=== PATIENT | female | born 1960 | race African-American/Black ===

== ENCOUNTER → 2022-11-30 | Outpatient (CLI) | payer BC ==
--- NOTE | 2022-11-30 11:47 | US ---
EXAMINATION TYPE: US thyroid st tissue head/neck DATE OF EXAM: 11/30/2022 COMPARISON: Outside ultrasound 02/08/2019 CLINICAL INDICATION: Female, 61 years old with history of E04.1 SINGLE THYROID NODULE; Nodule per ord er. Hx FNA. GLAND SIZE: Right Lobe: 6.5 x 2.7 x 2.5 cm Overall Parenchyma: heterogenous Left Lobe: 6.6 x 2.9 x 2.6 cm Overall Parenchyma: heterogenous Isthmus Thickness: 0.23 cm NODULES RIGHT: # of nodules measured on right: 3, numerous smaller nodules seen. 1. 0.8 X 0.9 x 0.6 cm, upper mid, Prior size: Cannot correlate with outside prior TIRADS Score: 3 TIRADS Category 3: Mildly Suspicious Composition: Mixed cystic and solid (1 point). Echogenicity: Hypoechoic (2 points). Shape: Wider than tall (0 points). Margin: Smooth (0 points). Echogenic foci: None or large comet-tail artifacts (0 points) Recommendation: If >2.5cm: FNA; If >1.5cm: Follow up at 1,3,5 years 2. 1.2 X 1.0 x 0.5 cm, mid lateral, Prior size: Cannot correlate TIRADS Score: 2 TIRADS Category 2: Not Suspicious Composition: Mixed cystic and solid (1 point). Echogenicity: Hyperechoic or isoechoic (1 point). Shape: Wider than tall (0 points). Margin: Smooth (0 points). Echogenic foci: None or large comet-tail artifacts (0 points) Recommendation: No FNA 3. 1.2 X 1.2 x 0.7 cm, lower mid, Prior size: Cannot correlate TIRADS Score: 3 TIRADS Category 3: Mildly Suspicious Composition: Mixed cystic and solid (1 point). Echogenicity: Hypoechoic (2 points). Shape: Wider than tall (0 points). Margin: Smooth (0 points). Echogenic foci: None or large comet-tail artifacts (0 points) Recommendation: If >2.5cm: FNA; If >1.5cm: Follow up at 1,3,5 years LEFT: # of nodules measured on left: 3, numerous smaller nodules seen. 1. 2.5 X 1.7 x 1.5 cm, mid lateral, Prior size: Cannot correlate TIRADS Score: 0 TIRADS Category 1: Benign Composition: Cystic or almost completely cystic (0 points). Recommendation: No FNA 2. 1.9 X 1.5 x 0.8 cm, mid mid, Prior size: Cannot correlate TIRADS Score: 0 TIRADS Category 1: Benign Composition: Cystic or almost completely cystic (0 points). Recommendation: No FNA 3. 1.7 X 1.8 x 1.3 cm, lower mid Prior size: Cannot correlate TIRADS Score: 4 TIRADS Category 4: Moderately Suspicious Composition: Solid or almost completely solid (2 points). Echogenicity: Hypoechoic (2 points). Shape: Wider than tall (0 points). Margin: Smooth (0 points). Echogenic foci: None or large comet-tail artifacts (0 points) Recommendation: If >1.5cm: FNA; If >1cm: Follow up at 1,2, 3,5 years ISTHMUS: # of nodules measured in the isthmus: 1 <5 mm nodule seen, not fully measured on the rig ht isthmus. Bilateral neck scanned, no evidence of lymphadenopathy. IMPRESSION: Bilateral thyroid nodules one of which within the left mid thyroid gland #3 above measuring 1.7 x 1.8 x 1.3 cm meets criteria for tissue sampling.
== END | disposition home or self-care (01) ==
LOC: RADUSWWP 09:10
PROVIDERS: ATTEND Family Medicine
DX: E04.2 Nontoxic multinodular goiter (principal)
CPT/HCPCS: 76536

== ENCOUNTER → 2023-01-19 | Outpatient (CLI) | payer BC ==
--- NOTE | 2023-01-21 08:50 | MM ---
Reason for Exam: Screening (asymptomatic). Patient History: Menarche at age 12. Hysterectomy at age 38. Postmenopausal. Mother had breast cancer at or over age 50. Risk Values: Danielle 5 year model risk: 2.5%. NCI Lifetime model risk: 10.3%. Prior Study Comparison: No prior studies available for comparison. Tissue Density: There are scattered fibroglandular densities. Findings: Analyzed By CAD. There is no suspicious group of microcalcifications or new suspicious mass in either breast. Overall Assessment: Negative, BI-RAD 1 Management: Screening Mammogram of both breasts in 1 year. . Patient should continue monthly self-breast exams. A clinical breast exam by your physician is recommended on an annual basis. This exam should not preclude additional follow-up of suspicious palpable abnormalities. Note on Danielle scores and lifetime risk: 1. A Danielle score greater than 3% is considered moderate risk. If this is the case, consider specialist referral to assess eligibility for a risk reducing agent. 2. If overall lifetime risk for the development of breast cancer is 20% or higher, the patient may qualify for future screening with alternating mammogram and breast MRI. Electronically signed and approved by: Gene Babcock M.D. Radiologis
== END | disposition home or self-care (01) ==
LOC: RADMAMWWP 11:44
PROVIDERS: ATTEND Family Medicine
DX: Z12.31 Encounter for screening mammogram for malignant neoplasm of breast (principal); Z78.0 Asymptomatic menopausal state; Z80.3 Family history of malignant neoplasm of breast
CPT/HCPCS: 77063; 77067

== ENCOUNTER 2023-12-03 06:02 | Day surgery (SDC) | payer BC ==
[2023-12-01 10:11] VITALS: BMI 43.5
[2023-12-03 06:47] VITALS: TEMP 97.1
[2023-12-03] MEDS: IV FLUID CONTINUATION 1,000 ML IV ONE ×2 (06:52→07:44)
[2023-12-03] MEDS: MIDAZOLAM 2 MG/2 ML VIAL IV STA (07:05)
[2023-12-03] MEDS: LIDOCAINE 1% (10MG/ML) FOR IV START INTRADERMA PRN (07:06)
[2023-12-03] MEDS: LACTATED RINGERS 1,000 ML IV SCH (07:06)
[2023-12-03] MEDS ORDERED: PROPOFOL 10 MG/ML 20 ML VIAL IV ONE (07:44)
[2023-12-03] MEDS ORDERED: LIDOCAINE 1% INJ 10MG/ML (20 ML MDV) ONE (07:44)
--- NOTE | 2023-12-03 08:04 | P.PCN ---
Date of Procedure: 12/03/23 Procedure(s) Performed: Brief history: Patient is a pleasant 62-year-old -[place] female scheduled for an elective upper endoscopy as well as colonoscopy as a part of evaluation of GERD/prior history of colon polyps Procedure performed: Esophagogastroduodenoscopy biopsy Colonoscopy with biopsy Preoperative diagnosis: GERD Sterile colon polyps [place] [facility] [place]: After informed consent was obtained from the patient was brought into the endoscopy unit and IV sedation was administered by anesthesia under continuous monitoring. Initially upper endoscopy was done. The Olympus GF 160 video endoscope was inserted inserted into the mouth and esophagus intubated without any difficulty and was gradually advanced into the stomach and duodenum and carefully examined. The bulb and second part of the duodenum appeared normal. The scope was then withdrawn into the stomach adequately insufflated with air and upon careful examination the antrum had mild gastritis and biopsies were done from this area. Mucosa of the body, cardia and fundus appeared normal. The scope was then withdrawn into the esophagus. The GE junction was located at 40 cm to the incisors. It appeared regular with no erythema erosions or ulcerations. Biopsies were done from the distal distal esophagus. Rest of the esophagus appeared normal. Patient tolerated the procedure well. At this time the patient continued to remain sedation. Initial digital rectal examination was normal. Olympus CF 160 video colonoscope was then inserted into the rectum and gradually advanced to the cecum without any difficulty. Careful examination was performed as the scope was gradually being withdrawn. The prep was excellent. The cecum, ascending colon, transverse colon, appeared normal. The descending colon there was a 3 mm polyp that was removed by cold biopsy. Rest of the descending colon, sigmoid colon and rectum appeared normal. Retroflexion was performed in the rectum and no lesions were noted. Patient tolerated the procedure well. Impression: 1. Upper endoscopy revealed mild antral gastritis but no evidence of esophagitis or Hicks's esophagus 2. Colonoscopy revealed a 3 mm descending colon polyp status post cold biopsy and the rest of the colon appeared normal Recommendations: Findings of this examination were discussed with the patient as well as her family. She was advised to continue the Dexilant 60 mg daily and follow antireflux measures. Follow-up with the biopsy results. Recommended repeat colonoscopy in 5 years.
[2023-12-03 08:23] VITALS: BP 117/77; PULSE 83; RESP 16
== END 2023-12-03 08:36 | disposition home or self-care (01) ==
LOC: ORWHC2ENDO 06:02
PROVIDERS: ATTEND Internal Medicine Gastroenterology
DX: Z12.11 Encounter for screening for malignant neoplasm of colon (principal); D12.4 Benign neoplasm of descending colon; K29.50 Unspecified chronic gastritis without bleeding; K21.9 Gastro-esophageal reflux disease without esophagitis; Z86.010 Personal history of colon polyps; I10 Essential (primary) hypertension; J45.909 Unspecified asthma, uncomplicated; F41.9 Anxiety disorder, unspecified; Z79.899 Other long term (current) drug therapy
CPT/HCPCS: 45380; 43239; J2250; J2001; J2704

== ENCOUNTER → 2024-01-13 | Outpatient (CLI) | payer BC ==
--- NOTE | 2024-01-13 12:33 | US ---
EXAMINATION TYPE: US thyroid st tissue head/neck DATE OF EXAM: 01/13/2024 COMPARISON: 11/30/22 CLINICAL INDICATION: Female, 63 years old with history of E04.2 NONTOXIC MULTINODULAR GOITER; hx of n odules GLAND SIZE: Right Lobe: 5.2 x 2.4 x 1.9 cm Overall Parenchyma: heterogeneous Left Lobe: 5.7 x 2.6 x 2.4 cm Overall Parenchyma: heterogeneous Isthmus Thickness: 0.31 cm NODULES RIGHT: # of nodules measured on right: 3 1. 0.9 X 0.9 x 0.5 cm, mid mid, mixed cystic and solid, hypoechoic nodule, which is wider than tall , with lobulated or irregular margins, without echogenic foci. TR 4 Prior size: 0.8 x 0.9 x 0.6 cm 2. 1.3 X 1.1 x 0.8 cm, lower medial, solid or almost completely solid, hypoechoic nodule, which is wider than tall, with lobulated or irregular margins, without echogenic foci. Prior size: 1.2 x 1.2 x 0.7 cm TR 4 3. 0.9 X 0.8 x 0.7 cm, lower medial, solid or almost completely solid, hypoechoic nodule, which is wider than tall, with lobulated or irregular margins, without echogenic foci. TR 4 LEFT: # of nodules measured on left: 3 1. 2.0 X 1.5 x 0.9 cm, mid mid, cystic or almost completely cystic, hypoechoic nodule, which is wid er than tall, with lobulated or irregular margins, without echogenic foci. TR 4 2. 1.3 X 1.5 x 0.8 cm, lower mid, solid or almost completely solid, hypoechoic nodule, which is wi keiry than tall, with lobulated or irregular margins, without echogenic foci. Prior size: 1.9 x 1.5 x 0.8 cm TR 4 3. 1.3 X 1.0 x 0.9 cm, lower lateral, mixed cystic and solid, hypoechoic nodule, which is wider josy n tall, with lobulated or irregular margins, without echogenic foci. TR 4 Prior size: 1.7 x 1.3 x 1.8 cm ISTHMUS: # of nodules measured in the isthmus: 0 Overall numerous nodules seen bilaterally Bilateral neck scanned, no evidence of lymphadenopathy. IMPRESSION: 1. There is a new 2.0 cm LEFT TR 4 thyroid nodule which meets the ACR guidelines for FNA. 2. Additional LEFT thyroid nodules are reduced in size relative to prior exam and, therefore, continu ed surveillance recommended. 3. There are multiple TR 4 RIGHT thyroid nodules which do NOT meet the criteria for FNA according to current ACR guidelines. Recommend continued surveillance. 4. Thyromegaly, correlate for thyroiditis. 2017 ACR TI-RADS LEVEL: TR-RADS 4 - Moderately Suspicious: Follow if > 1 cm, FNA if > 1.5 cm *Highest TI-RADS level nodule reported
[2024-01-13 15:42] LABS: T4, Free (Free Thyroxine) 1.17 ng/dL (0.80-1.80)
== END | disposition home or self-care (01) ==
LOC: RADUSWWP 09:04
PROVIDERS: ATTEND Internal Medicine
DX: E06.9 Thyroiditis, unspecified (principal); E01.0 Iodine-deficiency related diffuse (endemic) goiter; E55.9 Vitamin D deficiency, unspecified; R22.0 Localized swelling, mass and lump, head
CPT/HCPCS: 76536; 82306; 84439; 84443

== ENCOUNTER → 2024-03-02 | Outpatient (CLI) | payer BC ==
--- NOTE | 2024-03-06 12:41 | MM ---
Reason for Exam: Screening (asymptomatic). Last mammogram was performed 1 year(s) and 1 month(s) ago. Patient History: Menarche at age 12. Patient has no children. Hysterectomy at age 38. Postmenopausal. Mother had breast cancer at or over age 50. Risk Values: Danielle 5 year model risk: 2.5%. NCI Lifetime model risk: 10.0%. Prior Study Comparison: 01/19/2023 Bilateral MG 3D screening mammo w/cad, [facility]. Tissue Density: There are scattered areas of fibroglandular density. Findings: Analyzed By CAD. There is no suspicious group of microcalcifications or new suspicious mass in either breast. Overall Assessment: Benign, BI-RAD 2 Management: Screening Mammogram of both breasts in 1 year. . Patient should continue monthly self-breast exams. A clinical breast exam by your physician is recommended on an annual basis. This exam should not preclude additional follow-up of suspicious palpable abnormalities. Note on Danielle scores and lifetime risk: 1. A Danielle score greater than 3% is considered moderate risk. If this is the case, consider specialist referral to assess eligibility for a risk reducing agent. 2. If overall lifetime risk for the development of breast cancer is 20% or higher, the patient may qualify for future screening with alternating mammogram and breast MRI. [facility], , 03/06/2024 12:38 PM. Electronically signed and approved by: Moshe Nunez M.D. Radiologis
== END | disposition home or self-care (01) ==
LOC: RADMAMWWP 11:04
PROVIDERS: ATTEND Internal Medicine Geriatric Medicine
DX: Z12.31 Encounter for screening mammogram for malignant neoplasm of breast (principal); Z78.0 Asymptomatic menopausal state; Z80.3 Family history of malignant neoplasm of breast; R92.323 Mammographic fibroglandular density, bilateral breasts
CPT/HCPCS: 77063; 77067

== ENCOUNTER → 2024-04-21 | Outpatient (CLI) | payer BC ==
--- NOTE | 2024-04-24 08:47 | BD ---
EXAMINATION TYPE: Axial Bone Density DATE OF EXAM: 04/21/2024 CLINICAL HISTORY: 63 years old Female. ICD-10 CODE: M81.0 OSTEOPOROSIS , Additional History: Height: 66 Weight: 280.7 FRAX RISK QUESTIONS: Alcohol (3 or more units per day): no Family History (Parent hip fracture): yes Glucocorticoids (More than 3mos): no (Ex: prednisone, prednisolone, methylprednisolone, dexamethasone, and hydrocortisone). History of Fracture in Adulthood: no Secondary Osteoporosis: 1. Type 1 Diabetes: no 2. Hyperthyroidism: no 3. Menopause before 45: yes 4. Malnutrition: no 5. Chronic liver disease: no Rheumatoid Arthritis: no Current Tobacco Use: no RISK FACTORS HISTORY OF: Surgery to Spine/Hip(right/left)/Wrist (right/left): no EXAM MEASUREMENTS: Bone mineral densitometry was performed using the [employer] System. Bone mineral density as measured about the Lumbar spine is: ----- L1-L4(G/cm2): 1.325 T Score Values are as follows: ----- L1: 0.5 ----- L2: 0.7 ----- L3: 1.1 ----- L4: 2.1 ----- L1-L4: 1.2 Z Score Values are as follows: ----- L1: 0.2 ----- L2: 0.3 ----- L3: 0.7 ----- L4: 1.7 ----- L1-L4: 0.8 Bone mineral density : baseline Bone mineral density about the R hip (g/cm2): 1.114 Bone mineral density about the L hip (g/cm2): 1.136 T Score values are as follows: -----R Neck: 0.1 -----L Neck: -0.3 -----R Total: 0.8 -----L Total: 1.0 Z Score values are as follows: -----R Neck: -0.2 -----L Neck: -0.5 -----R Total: 0.1 -----L Total: 0.3 Bone mineral density : baseline FRAX%s: The graph provided illustrates a 5.3% chance for a major osteoporotic fx and a 0.1% chance fo r the hips probability for fx in 10 years time. IMPRESSION: Normal (Values between +1 and -1 indicate normal bone mass). Consider repeating this study in 5 year s or sooner if there is some new clinical indication. NOTE: T-SCORE=SD OF THE YOUNG ADULT MEAN. [facility], , 04/24/2024 8:44 AM
== END | disposition home or self-care (01) ==
LOC: RADBDWWP 14:32
PROVIDERS: ATTEND Family Medicine
DX: M81.0 Age-related osteoporosis without current pathological fracture (principal); Z78.0 Asymptomatic menopausal state
CPT/HCPCS: 77080